=== PATIENT | female | born 1965 | race Caucasian/White ===

== ENCOUNTER 2016-08-09 21:38 | Inpatient (IN) | payer SELFPAY ==
[~2016-08-09] VITALS: Ht 170.2 cm; Wt 68.2 kg
[~2016-08-09 21:38] MED LIST: GLUCTES27 XX; HYDR-2768 PO; METHO500 PO; METO50TA OR; MULT-65 PO; vit b12
[2016-08-09 21:39] VITALS: BP 136/68; PULSE 116; RESP 18; TEMP 98.9; O2SAT 97
[2016-08-09 22:00] VITALS: O2SAT 99
--- NOTE | 2016-08-09 22:01 | PD ---
Physical Exam Date Seen by Provider: Aug 09, 2016 Time Seen by Provider: 21:56 Data Data Last Documented VS Vital Signs Date Time Temp Pulse Resp B/P Pulse Ox O2 Delivery O2 Flow Rate FiO2 08/09/16 21:39 98.9 116 18 136/68 97 Room Air [facility] Supervised Visit with ERIC: No Narrative Course 50 YO F with complaint of LEFT ankle pain after "leg buckled" ~ 2 hours ago. No ambulation since accident. Visibly deformed. Palpable DP pulse. Sensation intact. Vitals reviewed. Awaiting bed placement. Annamarie Schultz Aug 09, 2016 22:01
--- NOTE | 2016-08-09 22:49 | RADRPT ---
EXAM DATE/TIME: 08/09/2016 22:48 [facility] COMPARISON: No previous studies available for comparison. INDICATIONS : Left ankle pain, fell MEDICAL HISTORY : None. SURGICAL HISTORY : None. ENCOUNTER: Initial ACUITY: 1 day PAIN SCORE: 10/10 LOCATION: Left Ankle FINDINGS: A moderately displaced bimalleolar left ankle fracture/dislocation is present. The talus is shifted l aterally and angulated laterally relative to the tibial plafond. A small medial malleolar fragment is displaced inferiorly. An oblique distal fibular fracture extends through the distal tibiofibular nathaly nt. There is moderate dorsal displacement of the minor distal fragment relative to the proximal fragm ent. There is some posterior shift of the hindfoot relative to the tibial plafond. I believe the talu s is intact and the remainder of the hindfoot is intact. CONCLUSION: Moderately displaced bimalleolar left ankle fracture/dislocation Juaquin Lawrence MD on August 09, 2016 at 22:45 Board Certified Radiologist. This report was verified electronically.
--- NOTE | 2016-08-09 22:57 | PD ---
HPI Chief Complaint: Injury Time Seen by Provider: 22:55 Travel History International Travel<30 days: No Contact w/Intl Traveler<30days: No Traveled to known affect area: No History of Present Illness HPI 50-year-old female presents to the emergency department for evaluation of left ankle pain. Patient states that she was out walking her dog and her dog pulled and she slipped and she is not exactly sure what she did to her ankle. She denies any other pain. Denies any head injury neck injury chest injury back intra-abdominal injury other extremity injury. She states that she felt her ankle slipped out of joint and was able to replace it into joint prior to arrival but it keeps slipping out. She denies a history of other medical problems but has not seen a physician in many years. States pain is moderate and constant. Incident happened just prior to arrival. PFSH Past Medical History Hypertension: Yes ?: Not Menopausal: Yes Past Surgical History Surgical History: No Previous Surgery Social History Alcohol Use: Yes (3-6 BEERS DAILY) Tobacco Use: Yes (1 PPD) Substance Use: No Allergies-Medications (Allergen,Severity, Reaction): Coded Allergies: Iodine (Verified Allergy, Severe, rash, 12/03/12) body felt like it was on fire, rash all over. Lisinopril (Verified Allergy, Severe, BACK PAIN, 12/03/12) Reported Meds & Prescriptions Reported Meds & Active Scripts Active Metoprolol Tartrate 50 Mg Tab 50 Mg OR DAILY Contour Next Blood Glucose Test Strip #25 (Blood Glucose Test Strips) Strp 1 Strip XX BID Robaxin 500 Mg Tab (Methocarbamol) 500 Mg Tab 500 Mg PO TID Hctz (Hydrochlorothiazide) 25 Mg Tab 25 Mg PO DAILY Reported Multi-Vitamin Daily (Multivitamins) Daily Tab 1 Tab PO DAILY [vit b12] Review of Systems Except as stated in HPI: all other systems reviewed are Neg Physical Exam Narrative GENERAL: Well-developed well-nourished no apparent distress, SKIN: Focused skin assessment warm/dry. HEAD: Atraumatic. Normocephalic. EYES: Pupils equal and round. No scleral icterus. No injection or drainage. ENT: No nasal bleeding or discharge. Mucous membranes pink and moist. NECK: Trachea midline. No JVD. CARDIOVASCULAR: Regular rate and rhythm. No murmur appreciated. RESPIRATORY: No accessory muscle use. Clear to auscultation. Breath sounds equal bilaterally. GASTROINTESTINAL: Abdomen soft, non-tender, nondistended. Hepatic and splenic margins not palpable. MUSCULOSKELETAL: There is an obvious deformity of the left ankle distal part is displaced laterally and angulated. Highly consistent with a bimalleolar or trimalleolar fracture. Dorsalis pedis pulses thready at 1+. 2+ on the opposite side. There is significant hematoma beginning to form as well. Overall compartments are soft. She is able to wiggle her toes and has no pain distally. There is no midline CT or L-spine tenderness. The remainder of the extremity is atraumatic. NEUROLOGICAL: Awake and alert. No obvious cranial nerve deficits. Motor grossly within normal limits. Normal speech. PSYCHIATRIC: Appropriate mood and affect; insight and judgment normal. Data Data Last Documented VS Vital Signs Date Time Temp Pulse Resp B/P Pulse Ox O2 Delivery O2 Flow Rate FiO2 08/09/16 22:00 99 2.00 08/09/16 22:00 18 08/09/16 21:39 98.9 116 136/68 Room Air Orders Ankle, Complete ([id number]) (08/09/16 ) Electrocardiogram (08/09/16 22:55) Basic Metabolic Panel (Bmp) (08/09/16 22:55) Complete Blood Count With Diff (08/09/16 22:55) Magnesium (Mg) (08/09/16 22:55) Prothrombin Time / Inr (Pt) (08/09/16 22:55) Act Partial Throm Time (Ptt) (08/09/16 22:55) Chest, Single Ap (08/09/16 22:55) Ecg Monitoring (08/09/16 22:55) Iv Access Insert/Monitor (08/09/16 22:55) Oximetry (08/09/16 22:55) Oxygen Administration (08/09/16 22:55) Sodium Chloride 0.9% Flush (Ns Flush) (08/09/16 23:00) Propofol 200 Mg/20 Ml Inj (Diprivan 200 (08/09/16 23:00) Ankle, Complete ([id number]) (08/09/16 ) Fiberglass Short Leg Splint Ad (08/09/16 ) Fiberglass Sugartong Sp Ad Sl (08/09/16 ) Ice Cuff (08/09/16 ) Admit Order (Ed Use Only) (08/10/16 ) Consult Orthopedic (08/10/16 ) Nicotine 14 Mg Patch.24 Hr (Habitrol 14 (08/10/16 00:30) Lorazepam (Ativan) (08/10/16 00:30) Labs Laboratory Tests Test 08/09/16 23:00 White Blood Count 11.0 TH/MM3 Red Blood Count 4.95 MIL/MM3 Hemoglobin 15.9 GM/DL Hematocrit 44.9 % Mean Corpuscular Volume 90.8 FL Mean Corpuscular Hemoglobin 32.1 PG Mean Corpuscular Hemoglobin 35.4 % Concent Red Cell Distribution Width 12.9 % Platelet Count 300 TH/MM3 Mean Platelet Volume 7.7 FL Neutrophils (%) (Auto) 73.3 % Lymphocytes (%) (Auto) 21.0 % Monocytes (%) (Auto) 3.8 % Eosinophils (%) (Auto) 0.6 % Basophils (%) (Auto) 1.3 % Neutrophils # (Auto) 8.1 TH/MM3 Lymphocytes # (Auto) 2.3 TH/MM3 Monocytes # (Auto) 0.4 TH/MM3 Eosinophils # (Auto) 0.1 TH/MM3 Basophils # (Auto) 0.1 TH/MM3 CBC Comment DIFF FINAL Differential Comment Prothrombin Time 10.3 SEC Prothromb Time International 0.9 RATIO Ratio Activated Partial 28.2 SEC Thromboplast Time Sodium Level 140 MEQ/L Potassium Level 4.2 MEQ/L Chloride Level 108 MEQ/L Carbon Dioxide Level 19.9 MEQ/L Anion Gap 12 MEQ/L Blood Urea Nitrogen 9 MG/DL Creatinine 0.87 MG/DL Estimat Glomerular Filtration 69 ML/MIN Rate Random Glucose 132 MG/DL Calcium Level 8.6 MG/DL Magnesium Level 2.1 MG/DL [facility] Medical Decision Making Medical Screen Exam Complete: Yes Emergency Medical Condition: Yes Interpretation(s) EKG shows normal sinus rhythm normal axis normal R-wave progression. No concerning ST-T changes changes. Intervals within normal limits. This normal EKG. Differential Diagnosis Ankle fracture, ankle fracture dislocation, ankle strain, ankle sprain. Narrative Course Patient roomed emergency primary, sedated and reduced the best of my ability. She has bounding pulses post reduction and has no pain in her toes. She is able to have full motion of her toes. Discussed with Dr. Saini patient will be surgical candidate in the morning. Admitted to Dr. Basilio. Initial preop labs are reassuring. Procedures Procedure Narrative After the risks and benefits were discussed of both procedural sedation and the reduction the patient verbalized understanding of the risks and agreed to proceed. ORTHOPEDIC REDUCTION: Using standard traction countertraction method the ankle was placed in what appears to be in anatomical position as reviewed from external. Pulse returned to a bounding nature of dorsalis pedis. Patient was placed in a posterior short leg and stirrup. She was able to wiggle her toes and pulses rechecked after the splint was placed. She tolerated the procedure fairly well. Diagnosis Primary Impression: Bimalleolar fracture of left ankle Additional Impression: Fracture dislocation of left ankle Admitting Information Admitting Physician Requests: Admit Condition: Stable Jerry Garduno MD Aug 09, 2016 22:57
[2016-08-09] MEDS ORDERED: SODIUM CHLORIDE 0.9% FLUSH 10 ML FLUSH IVF PRN (23:00)
[2016-08-09] MEDS ORDERED: PROPOFOL 200 MG/20 ML AMP IV ONE (23:00)
[2016-08-09 23:12] LABS: AUTOMATED NEUTROPHIL # 8.1 TH/MM3 (1.8-7.7); BASOPHIL # 0.1 TH/MM3 (0-0.2); BASOPHIL % 1.3 % (0.0-2.0); EOSINOPHIL # 0.1 TH/MM3 (0-0.4); EOSINOPHIL % 0.6 % (0.0-4.0); HEMATOCRIT 44.9 % (35.0-46.0); HEMO FLAGS DIFF FINAL; LYMPHOCYTE # 2.3 TH/MM3 (1.0-4.8); MEAN CELL VOLUME 90.8 FL (80.0-100.0); MEAN CORPUSCULAR HEMOGLOBIN 32.1 PG (27.0-34.0); MEAN CORPUSCULAR HGB CONC 35.4 % (32.0-36.0); MONO % 3.8 % (0.0-8.0); NEUT % 73.3 % (16.0-70.0); PLATELET COUNT 300 TH/MM3 (150-450); RED BLOOD COUNT 4.95 MIL/MM3 (4.00-5.30); RED CELL DISTRIBUTION WIDTH 12.9 % (11.6-17.2)
--- NOTE | 2016-08-09 23:17 | PD ---
Physical Exam Narrative I was asked by Dr. Garduno to perform procedural sedation for closed reduction of left ankle fracture dislocation. See his note for further details. Data Data Last Documented VS Vital Signs Date Time Temp Pulse Resp B/P Pulse Ox O2 Delivery O2 Flow Rate FiO2 08/09/16 22:00 18 08/09/16 21:39 98.9 116 136/68 97 Room Air Orders Ankle, Complete ([id number]) (08/09/16 ) Electrocardiogram (08/09/16 22:55) Basic Metabolic Panel (Bmp) (08/09/16 22:55) Complete Blood Count With Diff (08/09/16 22:55) Magnesium (Mg) (08/09/16 22:55) Prothrombin Time / Inr (Pt) (08/09/16 22:55) Act Partial Throm Time (Ptt) (08/09/16 22:55) Chest, Single Ap (08/09/16 22:55) Ecg Monitoring (08/09/16 22:55) Iv Access Insert/Monitor (08/09/16 22:55) Oximetry (08/09/16 22:55) Oxygen Administration (08/09/16 22:55) Sodium Chloride 0.9% Flush (Ns Flush) (08/09/16 23:00) Propofol 200 Mg/20 Ml Inj (Diprivan 200 (08/09/16 23:00) Labs Laboratory Tests Test 08/09/16 23:00 White Blood Count 11.0 TH/MM3 Red Blood Count 4.95 MIL/MM3 Hemoglobin 15.9 GM/DL Hematocrit 44.9 % Mean Corpuscular Volume 90.8 FL Mean Corpuscular Hemoglobin 32.1 PG Mean Corpuscular Hemoglobin 35.4 % Concent Red Cell Distribution Width 12.9 % Platelet Count 300 TH/MM3 Mean Platelet Volume 7.7 FL Neutrophils (%) (Auto) 73.3 % Lymphocytes (%) (Auto) 21.0 % Monocytes (%) (Auto) 3.8 % Eosinophils (%) (Auto) 0.6 % Basophils (%) (Auto) 1.3 % Neutrophils # (Auto) 8.1 TH/MM3 Lymphocytes # (Auto) 2.3 TH/MM3 Monocytes # (Auto) 0.4 TH/MM3 Eosinophils # (Auto) 0.1 TH/MM3 Basophils # (Auto) 0.1 TH/MM3 CBC Comment DIFF FINAL Differential Comment MDM Supervised Visit with ERIC: No Procedures Procedure Narrative Procedural sedation: After the risks and benefits were discussed the following procedure was performed: MODERATE SEDATION: The patient was placed on a rn cardiac rehab and pulse oximetry. An ambu bag and suction was immediately available at bedside. The patient was monitored by the nurse. Oxygen saturation , heart rate and blood pressure were monitored. Procedural sedation was acheived using 70 mg of IV propofol. The patient was observed until awake and alert. Procedural Sedation time in attendance was 17 minutes. Sundeep Michelle MD Aug 09, 2016 23:17
[2016-08-09 23:25] LABS: BICARBONATE 19.9 MEQ/L (21.0-32.0); MAGNESIUM 2.1 MG/DL (1.5-2.5); POTASSIUM 4.2 MEQ/L (3.5-5.1)
[2016-08-09 23:30] LABS: APTT (PATIENT) 28.2 SEC (24.3-30.1); INTERNATIONAL NORMALIZED RATIO 0.9 RATIO; PROTHROMBIN TIME - PATIENT 10.3 SEC (9.8-11.6)
--- NOTE | 2016-08-10 00:02 | RADRPT ---
EXAM DATE/TIME: 08/09/2016 23:42 [facility] COMPARISON: No previous studies available for comparison. INDICATIONS : Evaluate for pneumonia, pneumothorax, or communicable diseases. MEDICAL HISTORY : None. SURGICAL HISTORY : None. ENCOUNTER: Initial ACUITY: 1 day PAIN SCORE: 0/10 LOCATION: chest FINDINGS: A single view of the chest demonstrates the lungs to be symmetrically aerated without evidence of mas s, infiltrate or effusion. The cardiomediastinal contours are unremarkable. Osseous structures are intact. CONCLUSION: No evidence of acute cardiopulmonary disease. Juaquin Ibrahim MD on August 10, 2016 at 0:00 Board Certified Radiologist. This report was verified electronically.
--- NOTE | 2016-08-10 00:05 | RADRPT ---
EXAM DATE/TIME: 08/09/2016 23:46 [facility] COMPARISON: No previous studies available for comparison. INDICATIONS : Status post reduction. MEDICAL HISTORY : None. SURGICAL HISTORY : None. ENCOUNTER: Subsequent ACUITY: 1 day PAIN SCORE: 03/13 LOCATION: Left Ankle FINDINGS: Interim partial reduction and casting of the fracture dislocation of the left ankle. There is improve d but still some posterior and lateral subluxation across the tibiotalar joint. Bimalleolar fractures are again seen, near-anatomic alignment of the fibula, mild posterior lateral displacement of the me dial malleolus. CONCLUSION: Partially reduced fracture/dislocation of the left ankle. Please see above. Cast now present. Juaquin Ibrahim MD on August 10, 2016 at 0:02 Board Certified Radiologist. This report was verified electronically.
[2016-08-10] MEDS ORDERED: LORazepam 2 MG/ML VIAL IV PUSH PRN ×5 (00:30→01:30)
[2016-08-10] MEDS ORDERED: BISACODYL 10 MG SUPP RECTAL PRN ×2 (00:30→15:45)
[2016-08-10] MEDS ORDERED: SODIUM CHLORIDE 0.9% FLUSH 10 ML FLUSH IV FLUSH PRN ×2 (00:30→15:45)
[2016-08-10] MEDS ORDERED: MAGNESIUM HYDROXIDE SUSP 30 ML CUP PO PRN ×2 (00:30→15:45)
[2016-08-10] MEDS ORDERED: LACTULOSE SYRUP 20 GM/30 ML CUP PO PRN ×2 (00:30→15:45)
[2016-08-10] MEDS ORDERED: ONDANSETRON HCL 4 MG/2 ML VIAL IVP PRN ×2 (00:30→15:45)
[2016-08-10] MEDS ORDERED: NICOTINE 14 MG/24 HR PATCH T-DERMAL ONE (00:30)
[2016-08-10] MEDS ORDERED: MORPHINE SULFATE 4 MG/ML INJ IV PRN (00:30)
[2016-08-10] MEDS ORDERED: LORazepam 1 MG TAB PO ONE (00:30)
[2016-08-10] MEDS ORDERED: ACETAMINOPHEN 325 MG TAB PO PRN (00:30)
[2016-08-10] MEDS ORDERED: SENNOSIDES 8.6 MG TAB PO PRN ×2 (00:30→15:45)
[2016-08-10] MEDS ORDERED: ACETAMINOPHEN/HYDROcodone 325 MG/5 MG TAB PO PRN (00:30)
[2016-08-10] MEDS: SODIUM CHLOR 0.9% 1000 ML INJ 1,000 ML IV SCH ×3 (00:46→22:18)
[2016-08-10] MEDS ORDERED: HALOPERIDOL LACTATE 5 MG/ML AMP IM PRN (01:30)
[2016-08-10] MEDS ORDERED: LORazepam 2 MG TAB PO PRN (01:30)
[2016-08-10] MEDS ORDERED: LORazepam 1 MG TAB PO PRN (01:30)
[2016-08-10] MEDS ORDERED: FLUMAZENIL 0.5 MG/5 ML VIAL IV PUSH PRN (01:30)
[2016-08-10 01:40] VITALS: BP 130/75; PULSE 95; RESP 22; TEMP 96; O2SAT 96
[2016-08-10 04:00] VITALS: BP 101/65; PULSE 88; RESP 16; TEMP 96.9; O2SAT 95
[2016-08-10] MEDS ORDERED: INSULIN HUMAN REGULAR 1,000 UNITS/10 ML VIAL SQ PRN (04:00)
[2016-08-10] MEDS ORDERED: CHLORHEXIDINE GLUCONATE 2 % 1 PACK (2 CLOTHS) TOPICAL PRN (04:00)
[2016-08-10] MEDS ORDERED: LACTATED RINGER'S 1000 ML IV PRN (04:00)
[2016-08-10] MEDS ORDERED: METOPROLOL TARTRATE 25 MG TAB PO PRN (04:00)
[2016-08-10] MEDS ORDERED: SODIUM CHLORID 0.9% 500 ML IV PRN (04:00)
--- NOTE | 2016-08-10 04:15 | HHI.HP ---
[facility] Service [facility] Primary Care Physician No Primary Care Physician Admission Diagnosis Ankle fracture Diagnoses: (1) Ankle fracture Diagnosis: Principal (2) Dehydration Diagnosis: Principal (3) Alcohol abuse Diagnosis: Principal (4) Tobacco abuse Diagnosis: Principal Travel History International Travel<30 Days: No Contact w/Intl Traveler <30 Da: No Traveled to Known Affected Are: No History of Present Illness This is a 50-year-old female with a PMH of HTN, Alcohol Abuse and Tobacco Abuse who presented to the ER w/ complaints of left ankle pain after fall. States she was walking her dog and got tripped up then rolled her ankle. States her ankle "slipped out" and she was able to pop it back in, however popped out again. No other injuries reported. No head trauma or LOC. On arrival, BP 136/ 68, HR 116, O2 sat 97% on RA, Afebrile. CBC essentially unremarkable. GFR 69, previously 92 on 01/09/13. INR 0.9. CXR with no acute findings. Ankle X-ray with moderately displaced bimalleolar left ankle fracture/dislocation, s/p reduction in ER. Dr. Holloway consulted by ER physician, plan is for surgical intervention in am. Review of Systems Except as stated in HPI: all other systems reviewed are Neg ROS: 14 point review of systems otherwise negative. Past Family Social History Past Medical History PMH: HTN, Alcohol Abuse and Tobacco Abuse Past Surgical History PAST SURGICAL HISTORY: None Allergies: Coded Allergies: Iodine (Verified Allergy, Severe, rash, 12/03/12) body felt like it was on fire, rash all over. Lisinopril (Verified Allergy, Severe, BACK PAIN, 12/03/12) Family History PAST FAMILY HISTORY: Reviewed. No h/o DM or CAD Social History PAST SOCIAL HISTORY: Drinks 6 beers per day. Smokes 1ppd. Negative for drugs. Physical Exam Vital Signs Vital Signs Date Time Temp Pulse Resp B/P Pulse Ox O2 Delivery O2 Flow Rate FiO2 08/10/16 02:08 Room Air 08/10/16 01:40 96.0 95 22 130/75 96 08/09/16 22:00 99 2.00 08/09/16 22:00 18 08/09/16 21:39 98.9 116 18 136/68 97 Room Air Physical Exam PE: GENERAL: Middle-aged white female in no acute distress, however significant agitation due to nicotine withdrawal. HEENT: PERRLA, EOMI. No scleral icterus or conjunctival pallor. No lid lag or facial droop. CARDIOVASCULAR: Regular rate and rhythm. No obvious murmurs to auscultation. No chest tenderness to palpation. RESPIRATORY: No obvious rhonchi or wheezing. Clear to auscultation. Breath sounds equal bilaterally. GASTROINTESTINAL: Abdomen soft, non-tender, nondistended. BS normal. MUSCULOSKELETAL: LLE in splint, decreased ROM due to injury. NEUROLOGICAL: Awake, alert and oriented x4. No focal neurologic deficits. Moving both upper and lower extremities spontaneously. Laboratory Laboratory Tests Test 08/09/16 23:00 White Blood Count 11.0 Red Blood Count 4.95 Hemoglobin 15.9 Hematocrit 44.9 Mean Corpuscular Volume 90.8 Mean Corpuscular Hemoglobin 32.1 Mean Corpuscular Hemoglobin 35.4 Concent Red Cell Distribution Width 12.9 Platelet Count 300 Mean Platelet Volume 7.7 Neutrophils (%) (Auto) 73.3 Lymphocytes (%) (Auto) 21.0 Monocytes (%) (Auto) 3.8 Eosinophils (%) (Auto) 0.6 Basophils (%) (Auto) 1.3 Neutrophils # (Auto) 8.1 Lymphocytes # (Auto) 2.3 Monocytes # (Auto) 0.4 Eosinophils # (Auto) 0.1 Basophils # (Auto) 0.1 CBC Comment DIFF FINAL Differential Comment Prothrombin Time 10.3 Prothromb Time International 0.9 Ratio Activated Partial 28.2 Thromboplast Time Sodium Level 140 Potassium Level 4.2 Chloride Level 108 Carbon Dioxide Level 19.9 Anion Gap 12 Blood Urea Nitrogen 9 Creatinine 0.87 Estimat Glomerular Filtration 69 Rate Random Glucose 132 Calcium Level 8.6 Magnesium Level 2.1 Result Diagram: 08/09/16 2300 08/09/16 230 Assessment and Plan Problem List: (1) Ankle fracture ICD Code: S82.899A Status: Acute (2) Dehydration ICD Code: E86.0 Status: Acute (3) Alcohol abuse ICD Code: F10.10 Status: Acute (4) Tobacco abuse ICD Code: F17.200 Status: Acute Assessment and Plan A/P: 1. Left Ankle Fx: s/p trip and fall while walking dog, no head trauma or LOC reported. Left Ankle X-ray w/ moderately displaced bimalleolar left ankle fracture/dislocation, images reviewed by me. S/p reduction in ER. Dr. Holloway consulted by ER physician, plan is for surgical intervention in am. NPO, IVF, analgesics/antiemetics as needed. 2. Dehydration: GFR 69. BUN/Creatinine normal. IVF, repeat labs in a.m. 3. Alcohol Abuse: Drinks 6 beers/day. Start CIWA, Seizure Precautions, MVT/ Thiamine/Folate replacement. 4. Tobacco Abuse: Smokes 1ppd. Significant anxiety due to withdrawal. Pt declining NicoDerm patch. Ativan prn. 5. DVT Prophylaxis: Anticoagulation post op per Ortho. 6. Social work for d/c planning as needed. 7. Case discussed w/ ER physician at length. Physician Certification 2 Midnight Certification Type: Admission for Inpatient Services Order for Inpatient Services The services are ordered in accordance with Medicare regulations or non- Medicare payer requirements, as applicable. In the case of services not specified as inpatient-only, they are appropriately provided as inpatient services in accordance with the 2-midnight benchmark. Estimated LOS (days): 2 days is the estimated time the patient will need to remain in the hospital, assuming treatment plan goals are met and no additional complications. Post-Hospital Plan: Not yet determined Iris Nichole MD Aug 10, 2016 04:15
[2016-08-10 08:00] VITALS: BP 174/85; PULSE 98; RESP 16; TEMP 98; O2SAT 93
[2016-08-10] MEDS ORDERED: SODIUM CHLORIDE 0.9% FLUSH 10 ML FLUSH IV FLUSH SCH (09:00)
[2016-08-10] MEDS ORDERED: DOCUSATE SODIUM 50 MG/SENNA 8.6 MG TAB PO SCH (09:00)
[2016-08-10] MEDS: THIAMINE HCL 100 MG TAB PO SCH (10:40)
[2016-08-10] MEDS: MULTIVITAMINS/MINERALS THERAPEUTIC TAB PO SCH (10:40)
[2016-08-10] MEDS: FOLIC ACID 1 MG TAB PO SCH (10:40)
[2016-08-10 12:00] VITALS: BP 150/84; PULSE 91; RESP 16; TEMP 97.4; O2SAT 95
[2016-08-10] MEDS ORDERED: NEOSTIGMINE 3 MG/3 ML SYR IV ONE ×2 (12:00→14:37)
[2016-08-10] MEDS ORDERED: LACTATED RINGER'S 1000 ML INJ 1,000 ML IV ONE (14:37)
[2016-08-10] MEDS ORDERED: ONDANSETRON HCL 4 MG/2 ML VIAL IV PUSH ONE (14:37)
[2016-08-10] MEDS ORDERED: PROPOFOL 200 MG/20 ML AMP IV ONE (14:37)
[2016-08-10] MEDS ORDERED: MIDAZOLAM HCL 2 MG/2 ML VIAL ONE (15:16)
[2016-08-10] MEDS ORDERED: ACETAMINOPHEN 1000 MG/100 ML VIAL IV ONE (15:16)
[2016-08-10] MEDS ORDERED: fentaNYL CITRATE 250 MCG/5 ML AMP ONE ×2 (15:17→15:19)
[2016-08-10] MEDS ORDERED: ceFAZolin INJ 1,000 MG VIAL ONE (15:39)
[2016-08-10] MEDS ORDERED: GENTAMICIN SULFATE 80 MG/2 ML VIAL ONE (15:39)
[2016-08-10] MEDS ORDERED: PERC5TAB12 PO (15:40)
[2016-08-10] MEDS ORDERED: Post-op Orders (for Pharmacy) MISC XX ONE (15:45)
[2016-08-10] MEDS ORDERED: MORPHINE SULFATE 8 MG/ML INJ IV PUSH PRN (15:45)
[2016-08-10] MEDS ORDERED: PROMETHAZINE HCL 25 MG TAB PO PRN (15:45)
[2016-08-10] MEDS ORDERED: oxyCODONE/ACETAMINOPHEN 5 MG/325 MG TAB PO PRN ×2 (15:45)
[2016-08-10] MEDS ORDERED: ZOLPIDEM TARTRATE 5 MG TAB PO PRN (15:45)
--- NOTE | 2016-08-10 15:59 | PD.CONS ---
cc: Ata Nino Jr., MD HPI Service Orthopedic Surgeons Consult Requested By Primary Care Physician No Primary Care Physician Admission Diagnosis Ankle fracture Diagnoses: (1) Ankle fracture (2) Dehydration (3) Alcohol abuse (4) Tobacco abuse Chief Complaint: Left ankle fracture History of Present Illness 50-year-old female with a PMH of HTN, Alcohol Abuse and Tobacco Abuse who presented to the ER w/ complaints of left ankle pain after fall. States she was walking her dog and got tripped up then rolled her ankle. No other injuries reported. No head trauma or LOC. Ankle X-ray with moderately displaced bimalleolar left ankle fracture/dislocation, s/p reduction in ER. Patient reports sharp pain in her left ankle, 6 out of 10, exacerbated by any range of motion and weightbearing, relieved at rest and with IV pain medicine. Patient denies any paresthesia and numbness to the left lower extremity. ROS - General Review of Systems Except as stated in HPI: all other systems reviewed are Neg ROS: 14 point review of systems otherwise negative. PFSH Past Family Social History Past Medical History PMH: HTN, Alcohol Abuse and Tobacco Abuse Past Surgical History PAST SURGICAL HISTORY: None Allergies: Coded Allergies: Iodine (Verified Allergy, Severe, rash, 12/03/12) body felt like it was on fire, rash all over. Lisinopril (Verified Allergy, Severe, BACK PAIN, 12/03/12) Family History PAST FAMILY HISTORY: Reviewed. No h/o DM or CAD Social History PAST SOCIAL HISTORY: Drinks 6 beers per day. Smokes 1ppd. Negative for drugs. Past Family Social History Past Medical History PMH: HTN, Alcohol Abuse and Tobacco Abuse Past Surgical History PAST SURGICAL HISTORY: None Allergies: Coded Allergies: Iodine (Verified Allergy, Severe, rash, 12/03/12) body felt like it was on fire, rash all over. Lisinopril (Verified Allergy, Severe, BACK PAIN, 12/03/12) Active Ordered Medications Current Medications Medications (Trade) Dose Ordered Sig/Miguel A Route Start Time Stop Time Status Last Admin (NS Flush) 2 ml UNSCH PRN IVF 08/09/16 23:00 Lorazepam 0.5 mg 0.5 mg Q3H PRN IV PUSH 08/10/16 00:30 (NS 1000 ml Inj) 1,000 ml @ 100 mls/hr Q10H IV 08/10/16 00:29 08/10/16 10:39 (NS Flush) 2 ml UNSCH PRN IV FLUSH 08/10/16 00:30 (NS Flush) 2 ml BID IV FLUSH 08/10/16 09:00 08/10/16 10:40 (Zofran Inj) 4 mg Q6H PRN IVP 08/10/16 00:30 (Tylenol) 650 mg Q6H PRN PO 08/10/16 00:30 ([place] 5-325 Mg) 1 tab Q4H PRN PO 08/10/16 00:30 08/10/16 01:25 (Morphine Inj) 2 mg Q3H PRN IV 08/10/16 00:30 (Mary Kate-Colace) 1 tab BID PO 08/10/16 09:00 08/10/16 10:39 (Milk Of Magnesia Liq) 30 ml Q12H PRN PO 08/10/16 00:30 (Senokot) 17.2 mg Q12H PRN PO 08/10/16 00:30 (Dulcolax Supp) 10 mg DAILY PRN RECTAL 08/10/16 00:30 (Lactulose Liq) 30 ml DAILY PRN PO 08/10/16 00:30 (Folate) 1 mg DAILY PO 08/10/16 09:00 08/15/16 08:59 08/10/16 10:40 (Vitamin B1) 100 mg DAILY PO 08/10/16 09:00 08/10/16 10:40 (Theragran M Tab) 1 tab DAILY PO 08/10/16 09:00 08/15/16 08:59 08/10/16 10:40 (Romazicon Inj) 0.2 mg Q1M PRN IV PUSH 08/10/16 01:30 (Ativan) 1 mg Q4H PRN PO 08/10/16 01:30 (Ativan Inj) 1 mg Q4H PRN IV PUSH 08/10/16 01:30 (Ativan) 2 mg Q2H PRN PO 08/10/16 01:30 (Ativan Inj) 2 mg Q2H PRN IV PUSH 08/10/16 01:30 (Ativan Inj) 2 mg Q1H PRN IV PUSH 08/10/16 01:30 (Ativan Inj) 2 mg Q15M PRN IV PUSH 08/10/16 01:30 Haloperidol Lactate 2 mg 2 mg Q15M PRN IM 08/10/16 01:30 Lactated Ringer's 1,000 ml @ 30 mls/hr Q24H PRN IV 08/10/16 04:00 08/13/16 03:59 (NS 500 ml Inj) 500 ml @ 30 mls/hr [id number] PRN IV 08/10/16 04:00 08/13/16 03:59 (NS Flush) 2 ml UNSCH PRN IV FLUSH 08/10/16 15:45 UNV Sodium Chloride 2 ml 2 ml BID IV FLUSH 08/10/16 21:00 UNV Cefazolin Sodium 1000 mg/Sodium Chloride 100 ml @ 200 mls/hr Q6H IV 08/10/16 15:45 08/11/16 04:14 UNV (Vancomycin Inj/ NS 250 ml Inj) 250 ml @ 250 mls/hr Q12H IV 08/10/16 15:45 08/11/16 04:44 UNV (Post-op Orders (for Pharmacy)) STAT ONCE XX 08/10/16 15:45 08/10/16 15:46 UNV (Lovenox Inj) 30 mg Q12H SQ 08/10/16 15:45 UNV (Morphine Inj) 5 mg Q3H PRN IV PUSH 08/10/16 15:45 UNV (Percocet 5-325 Mg) 1 tab Q4H PRN PO 08/10/16 15:45 UNV (Percocet 5-325 Mg) 2 tab Q4H PRN PO 08/10/16 15:45 UNV (Toradol Inj) 15 mg Q6H IVP 08/10/16 15:45 08/12/16 09:46 UNV (Phenergan) 25 mg Q4H PRN PO 08/10/16 15:45 UNV (Zofran Inj) 4 mg Q6H PRN IVP 08/10/16 15:45 UNV (Ambien) 5 mg HS PRN PO 08/10/16 15:45 UNV (Mary Kate-Colace) 1 tab BID PO 08/10/16 21:00 UNV (Milk Of Magnesia Liq) 30 ml Q12H PRN PO 08/10/16 15:45 UNV (Senokot) 17.2 mg Q12H PRN PO 08/10/16 15:45 UNV (Dulcolax Supp) 10 mg DAILY PRN RECTAL 08/10/16 15:45 UNV (Lactulose Liq) 30 ml DAILY PRN PO 08/10/16 15:45 UNV Reported Meds & Active Scripts Active Percocet (Oxycodone-Acetaminophen) 5-325 mg Tab 1 Tab PO Q4H PRN Metoprolol Tartrate 50 mg (Metoprolol Tartrate) 50 Mg Tab 50 Mg OR DAILY Contour Next Blood Glucose Test Strip #25 (Blood Glucose Test Strips) Strp 1 Strip XX BID Robaxin 500 Mg Tab (Methocarbamol) 500 Mg Tab 500 Mg PO TID Hctz (Hydrochlorothiazide) 25 Mg Tab 25 Mg PO DAILY Reported Multi-Vitamin Daily (Multivitamins) Daily Tab 1 Tab PO DAILY [vit b12] Family History PAST FAMILY HISTORY: Reviewed. No h/o DM or CAD Social History PAST SOCIAL HISTORY: Drinks 6 beers per day. Smokes 1ppd. Negative for drugs. Physical Exam Vital Signs Vital Signs Date Time Temp Pulse Resp B/P Pulse Ox O2 Delivery O2 Flow Rate FiO2 08/10/16 12:00 97.4 91 16 150/84 95 08/10/16 08:00 98.0 98 16 174/85 93 08/10/16 04:00 96.9 88 16 101/65 95 08/10/16 02:08 Room Air 08/10/16 01:40 96.0 95 22 130/75 96 08/09/16 22:00 99 2.00 08/09/16 22:00 18 08/09/16 21:39 98.9 116 18 136/68 97 Room Air Physical Exam Alert awake and oriented x 3. No acute distress. Head: NC/AT Neck: No pain with any range of motion and neck. Pulmonary: Normal respiratory effort. Yaya upper extremity exam: No deformities. Grossly neurovascular intact. 2+ radial artery pulses. Good cap refill. RIGHT lower extremity: Neurovascularly intact, +EHL/FHL, + PT/DP pulses. Supple compartments. Negative Homans sign. LEFT lower extremity: Splint in place. Swelling of the ankle and forefoot. Tender to palpation of lateral malleolus. +EHL/FHL, Supple compartments. Laboratory Laboratory Tests Test 08/09/16 23:00 White Blood Count 11.0 Red Blood Count 4.95 Hemoglobin 15.9 Hematocrit 44.9 Mean Corpuscular Volume 90.8 Mean Corpuscular Hemoglobin 32.1 Mean Corpuscular Hemoglobin 35.4 Concent Red Cell Distribution Width 12.9 Platelet Count 300 Mean Platelet Volume 7.7 Neutrophils (%) (Auto) 73.3 Lymphocytes (%) (Auto) 21.0 Monocytes (%) (Auto) 3.8 Eosinophils (%) (Auto) 0.6 Basophils (%) (Auto) 1.3 Neutrophils # (Auto) 8.1 Lymphocytes # (Auto) 2.3 Monocytes # (Auto) 0.4 Eosinophils # (Auto) 0.1 Basophils # (Auto) 0.1 CBC Comment DIFF FINAL Differential Comment Prothrombin Time 10.3 Prothromb Time International 0.9 Ratio Activated Partial 28.2 Thromboplast Time Sodium Level 140 Potassium Level 4.2 Chloride Level 108 Carbon Dioxide Level 19.9 Anion Gap 12 Blood Urea Nitrogen 9 Creatinine 0.87 Estimat Glomerular Filtration 69 Rate Random Glucose 132 Calcium Level 8.6 Magnesium Level 2.1 Result Diagram: 08/09/16 2300 08/09/16 2300 Imaging Last 72 hours Impressions Chest X-Ray 08/09/162254 Signed Impressions: Service Date/Time: August 23:42 - CONCLUSION: No evidence of acute cardiopulmonary disease. Juaquin Ibrahim MD Ankle X-Ray 08/09/16 0000 Signed Impressions: Service Date/Time: August 23:46 - CONCLUSION: Partially reduced fracture/dislocation of the left ankle. Please see above. Cast now present. Juaquin Ibrahim MD Ankle X-Ray 08/09/16 0000 Signed Impressions: Service Date/Time: August 22:48 - CONCLUSION: Moderately displaced bimalleolar left ankle fracture/dislocation Juaquin Lawrence MD Assessment & Plan Assessment and Plan 50-year-old female status post fall sustained a closed left trimalleolar ankle fracture. This injury is unstable and requires open reduction internal fixation. I discussed treatment options with the patient such as the risks, benefits and alternative of surgical procedure. She agrees with my recommendations. All questions were answered. OR today NPO Ata Nino Jr., MD Aug 10, 2016 15:59
--- NOTE | 2016-08-10 17:27 | EKG ---
Date Performed: 08/10/2016 Time Performed: 04:56:00 PTAGE: 50 years EKG: Sinus rhythm Normal ECG PREVIOUS TRACING : 08/09/2016 23.50 Compared to prior tracing no significant change DOCTOR: Kirti Cochran Interpretating Date/Time 08/10/2016 17:26:03
--- NOTE | 2016-08-10 17:33 | EKG ---
Date Performed: 08/09/2016 Time Performed: 23:50:48 PTAGE: 50 years EKG: Sinus rhythm NORMAL ECG PREVIOUS TRACING : 08/31/2009 21.49 Compared to prior tracing no significant change DOCTOR: Kirti Cochran Interpretating Date/Time 08/10/2016 17:33:05
[2016-08-10] MEDS ORDERED: DO NOT ADM ANY ANTICOAGULANT DRUGS PRN (17:39)
--- NOTE | 2016-08-10 17:54 | RADRPT ---
EXAM DATE/TIME: 08/10/2016 16:53 [facility] COMPARISON: No previous studies available for comparison. INDICATIONS : ORIF left ankle. MEDICAL HISTORY : Fracture/dislocation of the left ankle. SURGICAL HISTORY : None. ENCOUNTER: Subsequent ACUITY: 2 days PAIN SCORE: Non-responsive. LOCATION: Left ankle. FINDINGS: Plate with screws is seen bridging the distal fibular fracture. Cortical lag screws are seen bridgin g a fracture of the medial malleolus. Alignment is anatomic. CONCLUSION: Anatomic alignment. Lj Hernandez MD FACR on August 10, 2016 at 17:48 Board Certified Radiologist. This report was verified electronically.
[2016-08-10] MEDS ORDERED: *morphine SULFATE 8 MG/ML PERIprocedure ONLY ONE (17:55)
[2016-08-10] MEDS ORDERED: *RESP: ALBUTEROL 2.5 MG/3 ML NEB (PRN) PERIprocedural Use ONLY NEB ONE (17:56)
[2016-08-10] MEDS: KETOROLAC TROMETHAMINE 30 MG/ML (IVP) VIAL IVP SCH ×2 (17:58→22:19)
[2016-08-10] MEDS ORDERED: *HYDROmorphone PF 1 MG VIAL PERIprocedural Use ONLY ONE ×2 (18:06→18:42)
[2016-08-10] MEDS: VANCOMYCIN INJ 1,000 MG in SODIUM CHLOR 0.9% 250 ML INJ 250 ML IV SCH (18:22)
[2016-08-10 19:41] VITALS: O2SAT 95
[2016-08-10 20:00] VITALS: BP 137/79; PULSE 82; RESP 18; TEMP 96.8; O2SAT 94
[2016-08-10] MEDS: DOCUSATE SODIUM 50 MG/SENNA 8.6 MG TAB PO SCH (22:17)
[2016-08-10] MEDS: SODIUM CHLORIDE 0.9% FLUSH 10 ML FLUSH IV FLUSH SCH (22:18)
[2016-08-11] VITALS: BP 139/81; PULSE 86; RESP 20; TEMP 97.1; O2SAT 94
--- NOTE | 2016-08-11 00:53 | PD.OP ---
cc: Ata Nino Jr., MD Operative Report Date of Surgery: Aug 10, 2016 Preoperative Diagnosis: Closed LEFT ankle trimalleolar fracture Postoperative Diagnosis: Same Procedure: Open reduction internal fixation LEFT ankle trimalleolar fracture Anesthesia: gen Surgeon: Ata Nino Justice Professor(s): Litzy Forman PA-C Resident Surgeon: none Operation and Findings: Informed consent obtained, operative site was marked. The foot and ankle were seen and evaluated this morning. Soft tissue swelling had significantly improved and appeared to be ready for surgery. sHe was brought to the operating room and placed on the operating room table. sHe was given intravenous sedation , general endotracheal anesthesia. He received IV antibiotics and was placed in the lateral decubitus position. Foot and leg were prepped with alcohol, followed by Hibiclens, draped in usual sterile fashion. A time out procedure was preformed. The procedure began with a five inch incision directly over the fibula. A full thickness flap was carefully elevated. Attention was now turned to expose the distal end of the fibula and as much proximal as necessary to allow reduction and plate position. Attention was turned to the syndesmosis and under direct visualization the syndesmotic area was cleaned of any debris and irrigated. Using pointed reduction clamps the fibula was reduced and reduction was maintained using lag screw fixation. Reduction was confirmed under fluoroscopy. The rest of the fibula was neutralized using a lateral fibular plate with locking screws distally To support osteoporotic bone. An anterior medial incision was made at the level of the medial malleolus. A full-thickness flap was carefully elevated. The medial malleolus piece was slightly move out delayed to allow direct visualization of the medial clear space which was thoroughly irrigated and cleared of any debris. The medial malleolus was reduced using pointed reduction clamp and reduction was provisionally maintained with a K wire before drilling the proximal cortex for Lag screwl fixation. Lag screw was placed in the medial malleolus at anterior colliculus and a similar technique was used to place a second parallel lag screw just posterior to the first. This second screw was necessary to provide rotational control. Using fluoroscopy, the syndesmosis was stressed in the mortise view with the cotton test and external rotation stress test. The syndesmosis was found to be stable. The posterior malleolar piece was reduced and the ankle joint was stable. The posterior malleolar fragment was small, less than 20% of the articular surface and therefore was not fixed. Multiplanar fluoroscopy confirmed well-aligned fracture. Final fluoroscopy was used to confirm a well-aligned fracture with well-placed hardware. Incision was thoroughly irrigated. Tourniquet was released. Hemostasis was confirmed. Fascia layer was closed 0 Vicryl, the skin and subcutaneous tissue closed with 3-0 nylon, in vertical mattress fashion. Sterile dressings were applied the patient was placed into a well molded padded splint. The patient was transferred to the Recovery Room in stable condition. postop plan: NWB LLE no dressing changes lovenox ancef rx on chart ok to dc from ortho when stable Ata Nino Jr., MD Aug 11, 2016 00:53
[2016-08-11 04:00] VITALS: BP 148/78; PULSE 91; RESP 18; TEMP 97; O2SAT 93
[2016-08-11] MEDS: VANCOMYCIN INJ 1,000 MG in SODIUM CHLOR 0.9% 250 ML INJ 250 ML IV SCH (06:22)
[2016-08-11] MEDS: ENOXAPARIN SODIUM 30 MG/0.3 ML SYRINGE SQ SCH ×2 (06:22→15:36)
[2016-08-11] MEDS: SODIUM CHLOR 0.9% 1000 ML INJ 1,000 ML IV SCH ×2 (06:29→11:58)
[2016-08-11] MEDS: KETOROLAC TROMETHAMINE 30 MG/ML (IVP) VIAL IVP SCH ×2 (06:35→11:51)
--- NOTE | 2016-08-11 06:51 | PD.ORT.PN ---
Subjective Subjective Remarks POD 1 s/p ORIF left ankle doing well. pain controlled. has not been using walker yet. Objective Vitals Vital Signs Date Time Temp Pulse Resp B/P Pulse Ox O2 Delivery O2 Flow Rate FiO2 08/11/16 04:00 97.0 91 18 148/78 93 08/11/16 00:00 97.1 86 20 139/81 94 08/10/16 20:00 96.8 82 18 137/79 94 08/10/16 19:41 95 Nasal Cannula 2.00 08/10/16 18:45 98.5 77 16 129/68 95 Nasal Cannula 2.5 08/10/16 18:30 80 17 129/67 95 Nasal Cannula 2.5 08/10/16 18:15 85 18 139/77 98 Aerosol Mask 08/10/16 18:00 76 20 141/73 99 Aerosol Mask 08/10/16 17:45 79 20 142/69 94 Nasal Cannula 3 08/10/16 17:39 98.6 88 17 139/75 92 Nasal Cannula 3 08/10/16 12:00 97.4 91 16 150/84 95 08/10/16 08:00 98.0 98 16 174/85 93 I/O 08/10/16 08/10/16 08/10/16 08/11/16 08/11/16 08/11/16 07:00 15:00 23:00 07:00 15:00 23:00 Intake Total 577 ml 663 ml 1705 ml 480 ml Output Total 50 ml Balance 577 ml 663 ml 1655 ml 480 ml Intake Oral 0 ml 480 ml 480 ml IV Total 577 ml 663 ml 125 ml Other 1100 ml Output Estimated Blood Loss 50 ml # Voids 1 0 2 # Bowel Movements 0 0 0 Result Diagram: 08/09/16 2300 08/09/16 2300 Objective Remarks LLE: +short leg splint. intact. NVI Assessment & Plan Assessment and Plan 1) Left Ankle Fx s/p ORIF - POD 1 -NWB -elevate -maintain splint at all times -work with PT today for walker training. if doing well, then DC home with [facility] -f/u with Dr Nino in 2 weeks Rickie Palacios Aug 11, 2016 06:51
[2016-08-11] MEDS ORDERED: WALKER/ADULT/FO1 MIS (06:53)
--- NOTE | 2016-08-11 06:54 | HHI.FF ---
Face to Face Verification Diagnosis: (1) Ankle fracture Physical Therapy Gait training Left LE Weight Bearing: Non WB Nursing Dressing Changes: Do not change dressing I have seen patient Valentine Kumar on 08/11/16. My clinical findings support the need for the requested home health care services because: Ltd mobility - disease progression I certify that my clinical findings support that this patient is homebound because: Post-op weakness Rickie Palacios Aug 11, 2016 06:53
[2016-08-11] MEDS: MULTIVITAMINS/MINERALS THERAPEUTIC TAB PO SCH (07:42)
[2016-08-11] MEDS: THIAMINE HCL 100 MG TAB PO SCH (07:42)
[2016-08-11] MEDS: DOCUSATE SODIUM 50 MG/SENNA 8.6 MG TAB PO SCH (07:43)
[2016-08-11] MEDS: FOLIC ACID 1 MG TAB PO SCH (07:43)
[2016-08-11] MEDS: SODIUM CHLORIDE 0.9% FLUSH 10 ML FLUSH IV FLUSH SCH (07:44)
[2016-08-11 08:00] VITALS: BP 142/87; PULSE 78; RESP 18; TEMP 96.6; O2SAT 96
[2016-08-11 08:45] LABS: AUTOMATED NEUTROPHIL # 12.1 TH/MM3 (1.8-7.7); BASOPHIL # 0.1 TH/MM3 (0-0.2); BASOPHIL % 0.5 % (0.0-2.0); EOSINOPHIL % 0.2 % (0.0-4.0); HEMATOCRIT 40.9 % (35.0-46.0); HEMO FLAGS DIFF FINAL; LYMPHOCYTE # 2.8 TH/MM3 (1.0-4.8); MEAN CELL VOLUME 92.2 FL (80.0-100.0); MEAN CORPUSCULAR HEMOGLOBIN 31.2 PG (27.0-34.0); MEAN CORPUSCULAR HGB CONC 33.9 % (32.0-36.0); MONO % 8.4 % (0.0-8.0); NEUT % 73.9 % (16.0-70.0); PLATELET COUNT 260 TH/MM3 (150-450); RED BLOOD COUNT 4.44 MIL/MM3 (4.00-5.30); RED CELL DISTRIBUTION WIDTH 13.1 % (11.6-17.2); WHITE BLOOD COUNT 16.4 TH/MM3 (4.0-11.0)
[2016-08-11 09:04] LABS: ANION GAP 10 MEQ/L (5-15); AST (GOT) 16 U/L (15-37); BICARBONATE 22.5 MEQ/L (21.0-32.0); BLOOD UREA NITROGEN 11 MG/DL (7-18); CHLORIDE 110 MEQ/L (98-107); GLOMERULAR FILTRATION RATE 100 ML/MIN (>89); POTASSIUM 3.8 MEQ/L (3.5-5.1); SODIUM (NA) 142 MEQ/L (136-145)
[2016-08-11 09:08] LABS: ALKALINE PHOSPHATASE 65 U/L (45-117); ALT (GPT) 20 U/L (10-53); TOTAL BILIRUBIN ADULT 0.5 MG/DL (0.2-1.0)
[2016-08-11 09:15] VITALS: O2SAT 98
[2016-08-11 12:00] VITALS: BP 137/83; PULSE 83; RESP 18; TEMP 97.2; O2SAT 97
[2016-08-11 13:45] VITALS: RESP 16
--- NOTE | 2016-08-11 19:22 | HHI.PR ---
Subjective Remarks Doing well complain cleared by ortho for discharge Objective Vitals Vital Signs Date Time Temp Pulse Resp B/P Pulse Ox O2 Delivery O2 Flow Rate FiO2 08/11/16 13:45 16 08/11/16 12:00 97.2 83 18 137/83 97 08/11/16 09:15 98 Nasal Cannula 2.00 08/11/16 08:00 96.6 78 18 142/87 96 08/11/16 07:51 Room Air 08/11/16 04:00 97.0 91 18 148/78 93 08/11/16 00:00 97.1 86 20 139/81 94 08/10/16 20:00 96.8 82 18 137/79 94 08/10/16 19:41 95 Nasal Cannula 2.00 I/O 08/10/16 08/10/16 08/10/16 08/11/16 08/11/16 08/11/16 07:00 15:00 23:00 07:00 15:00 23:00 Intake Total 577 ml 663 ml 1705 ml 480 ml Output Total 50 ml Balance 577 ml 663 ml 1655 ml 480 ml Intake Oral 0 ml 480 ml 480 ml IV Total 577 ml 663 ml 125 ml Other 1100 ml Output Estimated Blood Loss 50 ml # Voids 1 0 2 # Bowel Movements 0 0 0 Result Diagram: 08/11/16 0808/11/16 08 Objective Remarks GENERAL: This is a well-nourished, well-developed patient, in no apparent distress. SKIN: No rashes, warm and dry HEAD: Atraumatic. Normocephalic. EYES: Pupils equal round and reactive. Extraocular motions intact. No scleral icterus. ENT: Nose without bleeding, or drainage, Airway patent. NECK: Trachea midline. Supple CARDIOVASCULAR: Regular rate and rhythm without murmurs, gallops, or rubs. RESPIRATORY: Fair air entry bilaterally. No wheezes, rales, or rhonchi. GASTROINTESTINAL: Abdomen soft, non-tender, nondistended. Positive bowel sounds MUSCULOSKELETAL: Extremities without clubbing, cyanosis, or edema. Pedal pulses appreciated NEUROLOGICAL: Awake and alert. Moves all extremity. Normal speech.no focal neurological deficit A/P Problem List: (1) Ankle fracture ICD Code: S82.899A Status: Acute (2) Dehydration ICD Code: E86.0 Status: Acute (3) Alcohol abuse ICD Code: F10.10 Status: Acute (4) Tobacco abuse ICD Code: F17.200 Status: Acute Assessment and Plan - Left Ankle Fx: s/p trip and fall while walking dog, no head trauma or LOC reported. Left Ankle X-ray w/ moderately displaced bimalleolar left ankle fracture/dislocation, images reviewed by me. S/p reduction in ER. Dr. Holloway consulted s/p surgical intervention in am. , IVF, analgesics/antiemetics as needed. - Dehydration: improved GFR 69. BUN/Creatinine normal. IVF. - Alcohol Abuse: Drinks 6 beers/day. Start CIWA, Seizure Precautions, MVT/ Thiamine/Folate replacement. - Tobacco Abuse: Smokes 1ppd. Significant anxiety due to withdrawal. Pt declining NicoDerm patch. Ativan prn. - DVT Prophylaxis: Anticoagulation post op per Ortho. Discharge patient to home Condition on discharge: Improved HH Diet as tolerated Ad Pily activity Rx written:see med rec Follow-up with primary care physician, Tony Mcdonough MD Aug 11, 2016 19:21
== END 2016-08-11 15:59 | disposition home or self-care (01) | DRG 494 ==
LOC: NEPC 21:38 → NEDA 08-10 00:18 → N06A 08-10 01:31
PROVIDERS: ADMIT Hospitalist; ATTEND Hospitalist
PROC: 0QSHXZZ Reposition Left Tibia, External Approach (ICD-10-PCS; 2016-08-10)
PROC: 0QSH04Z Reposition Left Tibia with Internal Fixation Device, Open Approach (ICD-10-PCS; principal; 2016-08-10 15:25)
DX: S82.842A Displaced bimalleolar fracture of left lower leg, initial encounter for closed fracture (principal); I10 Essential (primary) hypertension; W01.0XXA Fall on same level from slipping, tripping and stumbling without subsequent striking against object, initial encounter; Y93.K1 Activity, walking an animal; Y92.9 Unspecified place or not applicable; E86.0 Dehydration; F10.10 Alcohol abuse, uncomplicated; F17.210 Nicotine dependence, cigarettes, uncomplicated; Z91.14 Patient's other noncompliance with medication regimen; F06.4 Anxiety disorder due to known physiological condition
CPT/HCPCS: 27840; 71010; 73600; 73610; 76000; 80048; 80053; 82948; 83735; 85025; 85610; 85730; 93005; 94150; 99156; C1713; J0131; J0690; J1170; J1580; J1650; J1885; J2250; J2270; J2405; J2710; J3010; J3370; J7030; J7050; J7120; J7613

== ENCOUNTER → 2016-09-26 | Outpatient (CLI) | payer SELFPAY ==
[~2016-09-26] MED LIST changes: +PERC5TAB12 PO; +WALKER/ADULT/FO1 MIS
== END ==
LOC: HORT 16:31
PROVIDERS: ATTEND Orthopaedic Surgery
DX: S82.852D Displaced trimalleolar fracture of left lower leg, subsequent encounter for closed fracture with routine healing (principal); X58.XXXD Exposure to other specified factors, subsequent encounter
CPT/HCPCS: L2114

== ENCOUNTER → 2017-02-08 | Day surgery (SDC) | payer OTHER ==
[~2017-02-08] MED LIST changes: +CHLORHEXIDINE GLUCONATE 2 % 1 PACK (2 CLOTHS) TOPICAL PRN; +CHLORHEXIDINE GLUCONATE 4% SOLN 120 ML BTL TOPICAL SCH; +INSULIN HUMAN REGULAR 1,000 UNITS/10 ML VIAL SQ PRN; +LACTATED RINGER'S 1000 ML IV PRN; +METOPROLOL TARTRATE 25 MG TAB PO PRN; +SODIUM CHLORID 0.9% 500 ML IV PRN; +VANCOMYCIN 1000 MG/NS 250 ML (for <70 kg) IV SCH; +ceFAZolin 2 GM PREMIX 50 ML IV SCH
== END | disposition home or self-care (01) ==
LOC: HSDC 10:31
PROVIDERS: ATTEND Orthopaedic Surgery
DX: Z48.01 Encounter for change or removal of surgical wound dressing (principal); Z53.8 Procedure and treatment not carried out for other reasons
CPT/HCPCS: 99211; G0463

== ENCOUNTER 2017-02-11 14:34 | Day surgery (SDC) | payer OTHER ==
[~2017-02-11] VITALS: Ht 170.2 cm; Wt 71.0 kg
[~2017-02-11 14:34] MED LIST changes: -CHLORHEXIDINE GLUCONATE 2 % 1 PACK (2 CLOTHS) TOPICAL PRN; -CHLORHEXIDINE GLUCONATE 4% SOLN 120 ML BTL TOPICAL SCH; +DEXAMETHASONE SOD PHOS 4 MG/ML VIAL IV ONE; -INSULIN HUMAN REGULAR 1,000 UNITS/10 ML VIAL SQ PRN; -LACTATED RINGER'S 1000 ML IV PRN; +LIDOCAINE HCL 1% PF 5 ML SYRINGE OTHER ONE; -METOPROLOL TARTRATE 25 MG TAB PO PRN; +MIDAZOLAM HCL 2 MG/2 ML VIAL IV ONE; +MORPHINE SULFATE 4 MG/ML INJ IV ONE; +ONDANSETRON HCL 4 MG/2 ML VIAL IV PUSH ONE; +PHENYLEPH/NS 1000 MCG/10 ML SYR IV ONE; +PROPOFOL 200 MG/20 ML AMP IV ONE; -SODIUM CHLORID 0.9% 500 ML IV PRN; -VANCOMYCIN 1000 MG/NS 250 ML (for <70 kg) IV SCH; -ceFAZolin 2 GM PREMIX 50 ML IV SCH; +ceFAZolin INJ 1,000 MG VIAL IV ONE; +hydrALAZINE HCL 20 MG/ML VIAL IV ONE
[2017-02-11] MEDS ORDERED: LACTATED RINGER'S 1000 ML IV PRN (15:45)
[2017-02-11] MEDS ORDERED: ceFAZolin 2 GM PREMIX 50 ML IV SCH (15:45)
[2017-02-11] MEDS ORDERED: POVIDONE IODINE 5% (ANTISEPSIS KIT) 4 APPLICATIONS EACH NARE PRN (15:45)
[2017-02-11] MEDS ORDERED: METOPROLOL TARTRATE 25 MG TAB PO PRN (15:45)
[2017-02-11] MEDS ORDERED: SODIUM CHLORID 0.9% 500 ML IV PRN (15:45)
[2017-02-11] MEDS ORDERED: INSULIN HUMAN REGULAR 1,000 UNITS/10 ML VIAL SQ PRN (15:45)
[2017-02-11] MEDS ORDERED: CHLORHEXIDINE GLUCONATE 2 % 1 PACK (2 CLOTHS) TOPICAL PRN (15:45)
[2017-02-11] MEDS ORDERED: VANCOMYCIN HCL 1000 MG ON-CALL/NS 250 ML IV SCH ×2 (15:45)
[2017-02-11] MEDS ORDERED: PERC5TAB12 PO (16:40)
[2017-02-11] MEDS ORDERED: oxyCODONE/ACETAMINOPHEN 5 MG/325 MG TAB PO PRN (16:45)
[2017-02-11] MEDS ORDERED: SODIUM CHLORIDE 0.9% FLUSH 10 ML FLUSH IV FLUSH PRN (16:45)
[2017-02-11] MEDS ORDERED: ONDANSETRON HCL 4 MG/2 ML VIAL IV PUSH PRN (16:45)
[2017-02-11] MEDS ORDERED: MORPHINE SULFATE 4 MG/ML INJ IV PUSH PRN (16:45)
[2017-02-11] MEDS ORDERED: GENTAMICIN SULFATE 80 MG/2 ML VIAL ONE (17:14)
[2017-02-11] MEDS ORDERED: ceFAZolin INJ 1,000 MG VIAL ONE (17:14)
[2017-02-11] MEDS ORDERED: KETOROLAC TROMETHAMINE 30 MG/ML (IVP) VIAL IVP ONE (17:30)
--- NOTE | 2017-02-11 18:39 | PD.OP ---
cc: Ata Nino Jr., MD Operative Report Date of Surgery: Feb 11, 2017 Preoperative Diagnosis: Left ankle painful hardware Postoperative Diagnosis: Same Procedure: Left ankle removal of hardware Anesthesia: Gen. Surgeon: Ata Nino Farmworker(s): Hospital staff Resident Surgeon: None Operation and Findings: Informed consent obtained, operative site, LEFT was marked. She was brought to the operating room and placed on the operating room table. sHe was given intravenous sedation, general endotracheal anesthesia. sHe received IV antibiotics and was placed in the lateral decubitus position. Foot and leg were prepped with alcohol, followed by Hibiclens, draped in usual sterile fashion. A time out procedure was preformed. At this point the leg was elevated. The tourniquet was inflated. The procedure began with a five inch incision over the lateral aspect fibula through the previously healed incision. A full thickness flap was carefully elevated. Using fluoroscopy the screws and plate were removed. Attention was now turned to the medial malleolus. Through her previously healed incision, dissection was taken out to the level of the medial malleolus. Using fluoroscopy guidance, the 2 medial malleolus screws removed. The syndesmosis was found to be stable. Multiplanar fluoroscopy confirmed well healed fracture with complete removal of the hardware. Incision was thoroughly irrigated. Tourniquet was released. Hemostasis was confirmed. Fascia layer was closed 0 Vicryl, the skin and subcutaneous tissue closed with 3-0 nylon, in vertical mattress fashion. Sterile dressings were applied. The patient was transferred to the Recovery Room in stable condition. POSTP-OP PLAN OF ACTIVITY Antibiotics Antiocoagulation: SCD Weight bearing status: 50% WB Dressing: do not change Dispo: expected discharge home from PACU Ata Nino Jr., MD Feb 11, 2017 18:39
[2017-02-11] MEDS ORDERED: *MEPERIDINE 25 MG INJ VIAL PERIprocedural Use ONLY ONE (19:04)
[2017-02-11] MEDS ORDERED: DO NOT ADM ANY ANTICOAGULANT DRUGS PRN (19:05)
[2017-02-11 19:30] VITALS: BP 157/89; PULSE 100; RESP 17; TEMP 98.2; O2SAT 95
--- NOTE | 2017-02-11 19:56 | RADRPT ---
EXAM DATE/TIME: 02/11/2017 18:14 [facility] COMPARISON: No previous studies available for comparison. INDICATIONS : Hardware removal of left ankle. MEDICAL HISTORY : Fracture/dislocation of the left ankle. SURGICAL HISTORY : ORIF left ankle. ENCOUNTER: Initial ACUITY: 1 day PAIN SCORE: Non-responsive. LOCATION: Left ankle. FINDINGS: A single view of the left ankle. No residual hardware. Bones osteopenic. CONCLUSION: 1. Removal of surgical hardware. No residual hardware identified. Jaime Bernstein MD on February 11, 2017 at 19:53 Board Certified Radiologist. This report was verified electronically.
[2017-02-11] MEDS ORDERED: SODIUM CHLORIDE 0.9% FLUSH 10 ML FLUSH IV FLUSH SCH (21:00)
== END 2017-02-11 19:49 | disposition home or self-care (01) ==
LOC: HSDC 14:34
PROVIDERS: ATTEND Orthopaedic Surgery
DX: T84.84XA Pain due to internal orthopedic prosthetic devices, implants and grafts, initial encounter (principal)
CPT/HCPCS: 01480; 20680; 73600; 76000; J0360; J0690; J1100; J1580; J1885; J2175; J2250; J2270; J2370; J2405; J3010; J3370; J7050

== ENCOUNTER 2017-07-06 19:17 | Emergency (ER) | payer OTHER ==
[~2017-07-06] VITALS: Ht 170.2 cm; Wt 72.5 kg
[~2017-07-06 19:17] MED LIST changes: -DEXAMETHASONE SOD PHOS 4 MG/ML VIAL IV ONE; -GLUCTES27 XX; -HYDR-2768 PO; -LIDOCAINE HCL 1% PF 5 ML SYRINGE OTHER ONE; -METHO500 PO; -METO50TA OR; -MIDAZOLAM HCL 2 MG/2 ML VIAL IV ONE; -MORPHINE SULFATE 4 MG/ML INJ IV ONE; -MULT-65 PO; -ONDANSETRON HCL 4 MG/2 ML VIAL IV PUSH ONE; -PHENYLEPH/NS 1000 MCG/10 ML SYR IV ONE; -PROPOFOL 200 MG/20 ML AMP IV ONE; -WALKER/ADULT/FO1 MIS; -ceFAZolin INJ 1,000 MG VIAL IV ONE; -hydrALAZINE HCL 20 MG/ML VIAL IV ONE; -vit b12
[2017-07-06 19:34] VITALS: BP 152/88; PULSE 110; RESP 16; TEMP 98.8; O2SAT 96
--- NOTE | 2017-07-06 20:05 | PD ---
HPI Chief Complaint: Dizziness Time Seen by Provider: 20:04 Travel History International Travel<30 days: No Contact w/Intl Traveler<30days: No Traveled to known affect area: No History of Present Illness HPI 51-year-old female with history of hypertension, presents emergency department for evaluation of what she believes may have been a mini stroke 2 days ago. Patient states that on she had an episode where she had difficulty saying words. She tells me that her brain was telling her what to say but she cannot see them. This resolved about 20 minutes after. Patient states that it has been bothering her however people that she spoke to today because her to be concerned and told her that she needed to get checked out so she came to the emergency department. Patient has not had these symptoms since then. She denies any headache. No nausea or vomiting. No focal deficits or weakness. Patient does have history of vertigo but this is not new for her. She has had no episodes today. No sensation of lightheadedness. patient has no other symptoms to report. PFSH Past Medical History Arthritis: Yes Cancer: No Cardiovascular Problems: Yes (HTN) Chemotherapy: No Cerebrovascular Accident: Yes Diabetes: No Endocrine: No Genitourinary: No Hepatitis: No Hiatal Hernia: No Hypertension: Yes Immune Disorder: No Musculoskeletal: Yes (PLANTAR FASCITIS, OSTEOPOROSIS, L ANKLE FX) Neurologic: No Psychiatric: No Reproductive: No Respiratory: No Radiation Therapy: No Thyroid Disease: No ?: Not Menopausal: Yes Past Surgical History Abdominal Surgery: No AICD: No Body Medical Devices: PLATE, SCREWS L ANKLE Cardiac Surgery: No Ear Surgery: No Endocrine Surgery: No Eye Surgery: No Genitourinary Surgery: No Gynecologic Surgery: No Joint Replacement: No Oral Surgery: No Pacemaker: No Thoracic Surgery: No Social History Alcohol Use: Yes (3-6 BEERS DAILY) Tobacco Use: Yes (1 PPD) Substance Use: No Allergies-Medications (Allergen,Severity, Reaction): Coded Allergies: iodine (Unverified Allergy, Severe, rash, 07/06/17) body felt like it was on fire, rash all over. lisinopril (Unverified Allergy, Severe, BACK PAIN, 07/06/17) potassium iodide (Unverified Allergy, Severe, rash, 07/06/17) body felt like it was on fire, rash all over. povidone-iodine (Unverified Allergy, Severe, rash, 07/06/17) body felt like it was on fire, rash all over. sodium iodide (Unverified Allergy, Severe, rash, 07/06/17) body felt like it was on fire, rash all over. Reported Meds & Prescriptions Reported Meds & Active Scripts Active No Active Prescriptions or Reported Medications Review of Systems Except as stated in HPI: all other systems reviewed are Neg Physical Exam Narrative GENERAL: Well-nourished female patient, ambulatory with a non-ataxic gait no acute distress SKIN: Focused skin assessment warm/dry. HEAD: Atraumatic. Normocephalic. EYES: Pupils equal and round. No scleral icterus. No injection or drainage. ENT: No nasal bleeding or discharge. Mucous membranes pink and moist. NECK: Trachea midline. No JVD. CARDIOVASCULAR: Tachycardic rate and rhythm. No murmur appreciated. RESPIRATORY: No accessory muscle use. Diminished to auscultation. Breath sounds equal bilaterally. GASTROINTESTINAL: Abdomen soft, non-tender, nondistended. Hepatic and splenic margins not palpable. MUSCULOSKELETAL: No obvious deformities. No clubbing. No cyanosis. No edema. 5+ strength equal bilateral extremities. NEUROLOGICAL: Awake and alert. No obvious cranial nerve deficits. Motor grossly within normal limits. Normal speech. PSYCHIATRIC: Appropriate mood and affect; insight and judgment normal. Data Data Last Documented VS Vital Signs Date Time Temp Pulse Resp B/P (MAP) Pulse Ox O2 Delivery O2 Flow Rate FiO2 07/06/17 20:18 20 97 Room Air 07/06/17 19:55 110 07/06/17 19:34 98.8 152/88 (109) Orders Orders Complete Blood Count With Diff (07/06/17 20:08) Basic Metabolic Panel (Bmp) (07/06/17 20:08) Urinalysis - C+S If Indicated (07/06/17 20:08) Ct Brain W/O Iv Contrast(Rout) (07/06/17 20:08) Ecg Monitoring (07/06/17 20:08) Iv Access Insert/Monitor (07/06/17 20:08) Oximetry (07/06/17 20:08) Sodium Chloride 0.9% Flush (Ns Flush) (07/06/17 20:15) Ed Discharge Order (07/06/17 22:01) Labs Laboratory Tests Test 07/06/17 20:13 07/06/17 20:30 White Blood Count 10.5 TH/MM3 Red Blood Count 4.99 MIL/MM3 Hemoglobin 16.0 GM/DL Hematocrit 44.7 % Mean Corpuscular Volume 89.6 FL Mean Corpuscular Hemoglobin 31.9 PG Mean Corpuscular Hemoglobin Concent 35.7 % Red Cell Distribution Width 13.2 % Platelet Count 362 TH/MM3 Mean Platelet Volume 7.9 FL Neutrophils (%) (Auto) 50.4 % Lymphocytes (%) (Auto) 40.0 % Monocytes (%) (Auto) 5.7 % Eosinophils (%) (Auto) 3.1 % Basophils (%) (Auto) 0.8 % Neutrophils # (Auto) 5.3 TH/MM3 Lymphocytes # (Auto) 4.2 TH/MM3 Monocytes # (Auto) 0.6 TH/MM3 Eosinophils # (Auto) 0.3 TH/MM3 Basophils # (Auto) 0.1 TH/MM3 CBC Comment DIFF FINAL Differential Comment Blood Urea Nitrogen 15 MG/DL Creatinine 1.42 MG/DL Random Glucose 94 MG/DL Calcium Level 8.8 MG/DL Sodium Level 139 MEQ/L Potassium Level 3.7 MEQ/L Chloride Level 106 MEQ/L Carbon Dioxide Level 22.7 MEQ/L Anion Gap 10 MEQ/L Estimat Glomerular Filtration Rate 39 ML/MIN Urine Color COLORLESS Urine Turbidity CLEAR Urine pH 5.0 Urine Specific [place] 1.002 Urine Protein NEG mg/dL Urine Glucose (UA) NEG mg/dL Urine Ketones NEG mg/dL Urine Occult Blood NEG Urine Nitrite NEG Urine Bilirubin NEG Urine Urobilinogen LESS THAN 2.0 MG/DL Urine Leukocyte Esterase NEG Urine WBC LESS THAN 1 /hpf Microscopic Urinalysis Comment CATH-CULT NOT IND MDM Medical Decision Making Medical Screen Exam Complete: Yes Emergency Medical Condition: Yes Medical Record Reviewed: Yes Differential Diagnosis TIA versus CVA versus electrolyte abnormality versus normal exam Narrative Course 51-year-old female presents emergency department for evaluation of an isolated episode of difficulty speaking 2 days ago. This HAS since resolved. Currently she has no focal deficits or weakness. She is mildly tachycardic however she tells me that she is anxious about being here and scared that something is wrong. Laboratory Tests Test 07/06/17 20:13 07/06/17 20:30 White Blood Count 10.5 TH/MM3 Red Blood Count 4.99 MIL/MM3 Hemoglobin 16.0 GM/DL Hematocrit 44.7 % Mean Corpuscular Volume 89.6 FL Mean Corpuscular Hemoglobin 31.9 PG Mean Corpuscular Hemoglobin Concent 35.7 % Red Cell Distribution Width 13.2 % Platelet Count 362 TH/MM3 Mean Platelet Volume 7.9 FL Neutrophils (%) (Auto) 50.4 % Lymphocytes (%) (Auto) 40.0 % Monocytes (%) (Auto) 5.7 % Eosinophils (%) (Auto) 3.1 % Basophils (%) (Auto) 0.8 % Neutrophils # (Auto) 5.3 TH/MM3 Lymphocytes # (Auto) 4.2 TH/MM3 Monocytes # (Auto) 0.6 TH/MM3 Eosinophils # (Auto) 0.3 TH/MM3 Basophils # (Auto) 0.1 TH/MM3 CBC Comment DIFF FINAL Differential Comment Blood Urea Nitrogen 15 MG/DL Creatinine 1.42 MG/DL Random Glucose 94 MG/DL Calcium Level 8.8 MG/DL Sodium Level 139 MEQ/L Potassium Level 3.7 MEQ/L Chloride Level 106 MEQ/L Carbon Dioxide Level 22.7 MEQ/L Anion Gap 10 MEQ/L Estimat Glomerular Filtration Rate 39 ML/MIN Urine Color COLORLESS Urine Turbidity CLEAR Urine pH 5.0 Urine Specific [place] 1.002 Urine Protein NEG mg/dL Urine Glucose (UA) NEG mg/dL Urine Ketones NEG mg/dL Urine Occult Blood NEG Urine Nitrite NEG Urine Bilirubin NEG Urine Urobilinogen LESS THAN 2.0 MG/DL Urine Leukocyte Esterase NEG Urine WBC LESS THAN 1 /hpf Microscopic Urinalysis Comment CATH-CULT NOT IND Last Impressions Head CT 07/06/172007 Signed Impressions: Service Date/Time: Thursday, July 06, 2017 20:24 - CONCLUSION: No acute disease. Jerry Long MD Labs and imaging studies have been reviewed. I discussed the patient my attending physician. Patient could have had a TIA. I have advised follow-up with her primary care provider, discussed stopping smoking tobacco cigarettes, and return immediately with any acute worsening symptoms. I did instruct her to not wait next time she has symptoms and to come immediately. I explained to her the importance of time on intervention if there is a stroke. She verbalizes understanding. Diagnosis Primary Impression: Difficulty with speech Referrals: Neurologist Primary Care Physician Patient Instructions: Benign Paroxysmal Positional Vertigo (ED), General Instructions, Transient Ischemic Attack (ED) Additional Instructions: FOLLOW UP WITH PRIMARY CARE PROVIDER SEEK NEUROLOGY EVALUATION RETURN TO ED IMMEDIATELY WITH ACUTE WORSENING OF SYMPTOMS Med/Other Pt SpecificInfo: No Change to Meds Scripts No Active Prescriptions or Reported Meds Disposition: 01 DISCHARGE HOME Condition: Stable Anahy Anderson July 06, 2017 20:05
[2017-07-06] MEDS ORDERED: SODIUM CHLORIDE 0.9% FLUSH 10 ML FLUSH IVF PRN (20:15)
[2017-07-06 20:18] VITALS: RESP 20; O2SAT 97
[2017-07-06 20:44] LABS: AUTOMATED NEUTROPHIL # 5.3 TH/MM3 (1.8-7.7); BASOPHIL # 0.1 TH/MM3 (0-0.2); BASOPHIL % 0.8 % (0.0-2.0); EOSINOPHIL # 0.3 TH/MM3 (0-0.4); EOSINOPHIL % 3.1 % (0.0-4.0); HEMATOCRIT 44.7 % (35.0-46.0); LYMPHOCYTE # 4.2 TH/MM3 (1.0-4.8); MEAN CELL VOLUME 89.6 FL (80.0-100.0); MEAN CORPUSCULAR HEMOGLOBIN 31.9 PG (27.0-34.0); MEAN CORPUSCULAR HGB CONC 35.7 % (32.0-36.0); MEAN PLATELET VOLUME 7.9 FL (7.0-11.0); MONO % 5.7 % (0.0-8.0); MONOCYTE # 0.6 TH/MM3 (0-0.9); NEUT % 50.4 % (16.0-70.0); PLATELET COUNT 362 TH/MM3 (150-450); RED BLOOD COUNT 4.99 MIL/MM3 (4.00-5.30); RED CELL DISTRIBUTION WIDTH 13.2 % (11.6-17.2); WHITE BLOOD COUNT 10.5 TH/MM3 (4.0-11.0)
[2017-07-06 20:48] LABS: BILIRUBIN, URINE NEG (NEG); BLOOD, URINE NEG (NEG); GLUCOSE,URINE NEG (NEG); KETONE, URINE NEG (NEG); NITRITE,URINE NEG (NEG); URINE COLOR COLORLESS (YELLW/STRAW); URINE LEUKOCYTE ESTERASE NEG (NEG)
--- NOTE | 2017-07-06 20:55 | RADRPT ---
EXAM DATE/TIME: 07/06/2017 20:24 CORRECTION Corrected on: July 06, 2017; [facility] COMPARISON: No previous studies available for comparison. INDICATIONS : Episode of aphasia RADIATION DOSE: 56.35 CTDIvol (mGy) MEDICAL HISTORY : Cardiovascular disease. Hypertension. Cerebrovascular disease.ETOH abuse SURGICAL HISTORY : None. ENCOUNTER: Initial ACUITY: 2 days PAIN SCALE: 0/10 LOCATION: Brain TECHNIQUE: Multiple contiguous axial images were obtained of the head. Using automated exposure control and adj ustment of the mA and/or kV according to patient size, radiation dose was kept as low as reasonably a chievable to obtain optimal diagnostic quality images. DICOM format image data is available electro nically for review and comparison. FINDINGS: CEREBRUM: The ventricles are normal for age. No evidence of midline shift, mass lesion, hemorrhage or acute in farction. No extra-axial fluid collections are seen. POSTERIOR FOSSA: The cerebellum and brainstem are intact. The 4th ventricle is midline. The cerebellopontine angle i s unremarkable. EXTRACRANIAL: The visualized portion of the orbits is intact. SKULL: The calvaria is intact. No evidence of skull fracture. CONCLUSION: No acute disease. Jerry Long MD on July 06, 2017 at 20:53 Board Certified Radiologist. This report was verified electronically. Jerry Long MD on July 06, 2017 at 22:26 Board Certified Radiologist. This report was verified electronically.
[2017-07-06 21:14] LABS: BICARBONATE 22.7 MEQ/L (21.0-32.0); CALCIUM 8.8 MG/DL (8.5-10.1); CREATININE 1.42 MG/DL (0.50-1.00)
== END 2017-07-06 23:02 | disposition home or self-care (01) ==
LOC: NEPC 19:17
DX: R47.89 Other speech disturbances (principal); R00.0 Tachycardia, unspecified; M19.90 Unspecified osteoarthritis, unspecified site; I10 Essential (primary) hypertension; M81.0 Age-related osteoporosis without current pathological fracture; F17.200 Nicotine dependence, unspecified, uncomplicated; Z88.8 Allergy status to other drugs, medicaments and biological substances
CPT/HCPCS: 70450; 80048; 81001; 85025